=== PATIENT | male | born 1935 | race Caucasian/White ===

== ENCOUNTER 2017-04-03 11:21 | Inpatient (IN) | payer MEDICARE, BC ==
--- NOTE | ~2017-04-03 | DS ---
PATIENT:BI ALONSO :31 MEDICAL RECORD: [id number] DISCHARGE SUMMARY ADMISSION DATE: 04/03/17 DISCHARGE DATE: 04/12/17 This is a discharge dated 04/12/2017 from inpatient rehab. PRIMARY DIAGNOSIS: Decreased functional ability and ability to provide activities of daily living secondary to diffuse myopathy. SECONDARY DIAGNOSES: 1. Viral stomatitis. 2. Acute malnutrition. 3. Hypovolemia. 4. Uncontrolled atrial fibrillation. 5. Hypokalemia. 6. Hematuria. 7. Hypernatremia. 8. Acute kidney injury. 9. Ulcerative pharyngitis. 10. COPD. 11. Hypertension. 12. Benign prostatic hypertrophy. 13. Gastroesophageal reflux disease. 14. Anemia. 15. Depression. CONSULTS THIS HOSPITALIZATION: 1. GI with Dr. Pantoja. 2. Surgery with Dr. Cade. 3. Cardiology with Dr. Robin. HOSPITAL COURSE: Full H&P is located elsewhere on the chart on this 81-year-old male who was admitted to inpatient rehab for physical therapy and occupational therapy to improve gait, transfer skills, bed mobility, and activities of daily living to a modified independent level. He was evaluated by PT and OT and their plans of care were followed. He required senior care care for observation and assessment and medication administration. Electrolytes were managed by protocol. He was also seen by speech therapy. He was cooperative with therapies, progressing towards goals. Therapy was hampered by intermittent dizziness and hypotension. He developed some low-grade fevers. Urine was consistent with an infectious process. His oral intake continued to decline. Surgery was consulted for placement of a PEG tube. He developed uncontrolled atrial fibrillation and cardiology was consulted. Fluid bolus was given for hypovolemia. He was transferred to the acute setting for a higher level of care and for PEG tube placement. DISCHARGE MEDICATIONS: As per discharge medication reconciliation. DISCHARGE DISPOSITION: The patient is discharged to the acute care hospital. He will continue his current diet and level of activity. He will be seen by primary care and specialist in the acute setting. At least 30 minutes was spent in this discharge activity. TRANSINT:[id number] Voice Confirmation ID: [id number] DOCUMENT ID: [id number] DISCHARGE SUMMARY REPORT [id number] BI ALONSO Dictated By: SAUMYA CARVALHO I have interviewed/examined the above patient and agree with these documented findings. KAVIN LUCAS MD at 1344 at 1344 CC: [id number] DICTATION DATE: 05/17/17 180 PARISH VISITOR: 05/18/17 0136 DIS IN 04/12/17 [facility] [address] [place] [address]
--- NOTE | ~2017-04-03 | CN ---
PATIENT NAME:BI ALONSO MEDICAL RECORD: [id number] : 31 LOCATION:[id number] ADMIT DATE: 04/03/17 ACCOUNT: [id number] CONSULTING PHYSICIAN: ELISE WHITE MD REFERRING PHYSICIAN: KAVIN LUCAS MD DATE OF CONSULTATION: 04/11/2017 CHIEF COMPLAINT: Difficulty swallowing. HISTORY OF PRESENT ILLNESS: The patient has odynophagia. This is due to stomatitis. It is my understanding that the etiology of the stomatitis is not known. The patient may be developing an acute severe illness. He is now in atrial fibrillation with a rapid ventricular response. I have been asked to see him to place a feeding tube. It appears that GI was consulted as well. They have deferred placement of feeding tube to us. I have explained the risks, possible complications, and alternatives to the patient. This includes the risk of bleeding, requiring emergency reoperation, infection, intestinal injury as well as early dislodgement of the feeding tube. He is on Eliquis. We will need to hold the Eliquis prior to his procedure. The patient is currently nonverbal. Due to his nonverbal state, he is unable to provide me with any aggravating factors or alleviating factors. He is unable to provide me with a review of systems either. This is a consultation note addendum. For the typed portion of the consult note, please see the chart. This will include the past medical and surgical history, current medications, allergies, social history as well as family history. REVIEW OF SYSTEMS: Unobtainable from the patient as he is currently nonverbal. PHYSICAL EXAMINATION: GENERAL: He appears acutely ill. He does not appear chronically ill. VITAL SIGNS: Reviewed. I interviewed him in the presence of a nurse. EARS: External ears appear normal. EYES: Extraocular movements are intact. NECK: Trachea is midline. CHEST: No intercostal retractions. PULMONARY: Nonlabored, no stridor. ABDOMEN: Nontender. INTEGUMENT: Multiple seborrheic keratoses. PSYCHIATRIC: Flat affect. NEUROLOGIC: He is currently nonverbal. BACK: Mild thoracic kyphosis is noted. LYMPHATICS: No lymphangitic streaking of the exposed extremities. IMPRESSION: Acute malnutrition secondary to stomatitis. PLAN: Placement of a PEG tube in the GI lab on Thursday. I will hold his Eliquis until then. TRANSINT:[id number] Voice Confirmation ID: [id number] DOCUMENT ID: [id number] CONSULT REPORT [id number] BI ALONSO, ELISE DELGADILLO at 1019 CC: [id number] DICTATION DATE: 04/11/17 1553 COMPLETION MANAGER: 04/11/17 1611 DIS IN 04/12/17 [facility] [address] [place] [id number]
--- NOTE | ~2017-04-03 | RHP ---
PATIENT: BI ALONSO MEDICAL RECORD: [id number] ACCOUNT: [id number] LOCATION:[facility] : 31 ADMISSION DATE: 04/03/17 REHABILITATION HISTORY AND PHYSICAL EXAMINATION POST ADMISSION PHYSICIAN EXAMINATION POST-ADMISSION PHYSICAL EXAMINATION AND HISTORY AND PHYSICAL DATE OF ADMISSION: 04/03/2017 ADMITTING DIAGNOSIS: Disuse myopathy. HISTORY OF PRESENT ILLNESS: The patient is an 81-year-old gentleman, who is admitted to inpatient rehab unit with a diagnosis of disuse myopathy. The patient had a viral syndrome, viral stomatitis, inability to eat or drinking, and had a 20-pound weight loss. He was admitted to the acute hospital at [facility] on 03/25. He had a past medical history of COPD, hypertension, benign prostatic hypertrophy, and reflux disease. He was in his usual state of health 2 weeks prior to the admit when he started complaining of sore throat of moderate intensity, worsening over time. Started with a cough, sometimes productive. He went to his PCP, was tried with Bicillin injections the first visit or oral after the second. He has been unable to keep any of his medications down, had very little p.o. intake resulting in a 20-pound weight loss. He went back to his PCP, was sent to Dr. Worrell who suspected an acute viral pharyngitis due to soft palate ulcers, inability to swallow, significant weight loss. He therefore recommended admission. He was admitted with antivirals including acyclovir 500 mg IV every 12 hours. He was placed on clindamycin 300 mg IV every 6 hours, Procalamine 75 cc per hour, lipids at 250 cc every 24 hours, Magic mouthwash. He had sinus tachycardia at 126 and was placed on telemetry. He developed some hematuria. His DVT prophylaxis with subcutaneous heparin was held. Currently, he is able to drink water and take a soft diet, but p.o. intake is still not optimal. He remains very weak. He has a pain of 4/10, requiring morphine 2 mg IV every 2 hours p.r.n. pain. He has had prolonged immobility, progressive generalized weakness especially in the lower extremities affecting his tolerance for PT. He is very fatigued with limited flexion and extension of his lower extremities. He has had impaired proximal muscle strength. He is abosfwnz-yw-jcl assist for ADLs, vzfqjqqy-my-xgh assist for gpm-of-itxty and gbw-na-tstrp. He has ambulated 100 feet with PT, rolling walker, gait belt, and O2. Prior to admit, he was moderately independent with ADLs and mobility using a walker around his house. He is very motivated and has good family support to return home. Comorbidities in this patient include viral stomatitis, ulcerative pharyngitis, acute kidney injury, anemia, tachycardia, hypernatremia, hematuria, 20-pound weight loss, deconditioning, weakness, sore throat, and depression. PAST MEDICAL HISTORY: Significant for BPH, gastroesophageal reflux disease, COPD, and hypertension. PAST SURGICAL HISTORY: Includes transurethral resection of the prostate. ALLERGIES: No known drug allergies. CURRENT MEDICATIONS: Include Protonix 40 mg daily, aspirin chewable 81 mg daily, Norvasc 5 mg daily, acyclovir 400 mg 5 times daily. He is on citalopram HISTORY AND PHYSICAL [id number] BI ALONSO 20 mg at bedtime, hydrocodone 5/325 as needed for pain, Cozaar 25 mg b.i.d. He is on Magic mouthwash as needed. He is on albuterol updrafts 2 puffs every 4 hours p.r.n., polyethylene glycol 17 grams in 8 ounces of water daily. HABITS: No current alcohol or tobacco use. FAMILY HISTORY: Noncontributory. SOCIAL HISTORY: The patient hopes to return back home. He does have good family support. REVIEW OF SYSTEMS: GENERAL: Does complain of weakness and fatigue. HEENT: Denies cold, cough, or congestion. CARDIOVASCULAR: Denies chest pain. PHYSICAL EXAMINATION: VITAL SIGNS: Stable, afebrile. GENERAL: A thin gentleman, in no acute distress upon exam. HEENT: Normocephalic, atraumatic. Mucosa moist. TMs are shiny and mobile. NECK: Supple. He does have redness to his posterior oropharynx. LUNGS: Clear at this time. HEART: Regular rate and rhythm. ABDOMEN: Benign. EXTREMITIES: No clubbing, cyanosis or edema. NEUROLOGIC: He does have profound weakness. LABORATORY DATA: White count is 3.7, H&H of 9.6 and 28.6, and platelet count was noted to be 220. His MCV is 107.5. Sodium 140, potassium 3.8, BUN and creatinine of 19 and 1.1, and blood sugar was noted to be 105. ASSESSMENT: This is an 81-year-old gentleman admitted to the rehab with a working diagnosis of disuse myopathy secondary to a prolonged illness with a viral stomatitis and weight loss. The patient has potential to make improvement. We will institute the following multidisciplinary therapies including, but not limited to physical, occupational, respiratory, speech, nutritional services, prosthetics and orthotics. Given his complex condition and risk for more complications, rehabilitation services cannot be provided at a low level of care such as a custodial facility. PLAN: 1. Admit to [facility] rehab for intensive inpatient therapy to include the following disciplines: A. Physical therapy to improve gait, all transfer skills and bed mobility to a modified independent level. B. Occupational therapy to improve activities of daily living to a modified independent level. C. Case management to assist with discharge planning and placement options. D. Nutrition to assist with nutritional needs. E. Rehabilitation nursing to assist in monitoring the patient's underlying medical conditions and to assist with any type of bowel or bladder management. 2. The patient's current medications will be continued. 3. The patient will be placed on standard fall precautions. 4. The patient's estimated length of stay is approximately 7 to 10 days. 5. We will discuss this patient during care team staff meeting this week. HISTORY AND PHYSICAL [id number] BI ALONSO TRANSINT:[id number] Voice Confirmation ID: [id number] DOCUMENT ID: [id number] ASHTYN notes whether there has been none or any medical/functional change since admission: - No change since prescreen. ASHTYN attests patient continues to be appropriate for IRF: - Continues to be appropriate. KAVIN LUCAS MD at 1739 CC: [id number] DICTATION DATE: 04/04/17 1024 TRAY CASTING MACHINE OPERATOR: 04/04/17 1128 ADM IN [place] [id number] [place] [address]
[2017-04-03 13:55] VITALS: BP 125/62; BMI 21.1
[2017-04-03] MEDS ORDERED: ZOVIRAX 20200 MG/5 M PO (14:27)
[2017-04-03] MEDS ORDERED: PROAIR HFA8.5 GM INH (14:31)
[2017-04-03] MEDS ORDERED: ASPIRIN EC81 M1 PO (14:32)
[2017-04-03] MEDS ORDERED: DEXILANT60 MG PO (14:33)
[2017-04-03] MEDS ORDERED: CELEXA20 MG PO (14:33)
[2017-04-03] MEDS ORDERED: COZAAR25 MG PO (14:36)
[2017-04-03] MEDS ORDERED: HYDROCODON-ACE1 EAC7 PO (14:36)
[2017-04-03] MEDS ORDERED: ONCOLOGY MOUTHWA5 ML PO (14:37)
[2017-04-03] MEDS ORDERED: ACETAMINOPHEN325 MG PO (14:38)
[2017-04-03] MEDS ORDERED: TYLENOL PM1 TAB PO (14:39)
[2017-04-03 20:00] VITALS: BP 135/81
[2017-04-04 08:15] LABS: BASOPHILS 0.3 % (0-2); EOSINOPHILS 0.3 % (0-7); HEMATOCRIT 28.6 % (42.0-54.0); HEMOGLOBIN 9.6 g/dL (13.5-17.5); IMMATURE GRANULOCYTES 1.6 % (0-5); LYMPHOCYTES 14.4 % (15-50); MCH 36.1 pg (26.0-34.0); MCHC 33.6 g/dL (31.0-37.0); MCV 107.5 fL (80.0-100.0); MEAN PLATELET VOLUME 11.3 fL (7.4-10.4); MONOCYTES 54.3 % (2-11); NEUTROPHILS 29.1 % (40-80); PLATELET COUNT 220 10x3/uL (130-400); RBC 2.66 10x6/uL (4.20-6.10); RDW 13.1 % (11.5-14.5); WBC 3.7 10x3/uL (4.8-10.8)
[2017-04-04 08:33] LABS: CALCIUM 8.4 mg/dL (8.5-10.1); CARBON DIOXIDE 27.8 mmol/L (21.0-32.0); CREATININE - SERUM 1.1 mg/dL (0.6-1.3); POTASSIUM - SERUM 3.8 mmol/L (3.5-5.1)
[2017-04-04 11:18] VITALS: BMI 21.1
[2017-04-04 14:27] VITALS: BP 130/69
[2017-04-04 23:16] VITALS: BP 106/63
[2017-04-05 08:36] VITALS: BP 106/57
[2017-04-05 19:34] VITALS: BP 109/52
[2017-04-06 05:43] LABS: BASOPHILS 0.2 % (0-2); EOSINOPHILS 0.2 % (0-7); HEMATOCRIT 27.2 % (42.0-54.0); LYMPHOCYTES 26.9 % (15-50); MCH 35.4 pg (26.0-34.0); MCHC 33.1 g/dL (31.0-37.0); MCV 107.1 fL (80.0-100.0); MEAN PLATELET VOLUME 10.8 fL (7.4-10.4); MONOCYTES 35.1 % (2-11); NEUTROPHILS 36.6 % (40-80); PLATELET COUNT 230 10x3/uL (130-400); RBC 2.54 10x6/uL (4.20-6.10); RDW 13.3 % (11.5-14.5)
[2017-04-06 05:57] LABS: ANION GAP 12.8 mmol/L (8-16); CALCIUM 8.4 mg/dL (8.5-10.1); CARBON DIOXIDE 26.5 mmol/L (21.0-32.0); POTASSIUM - SERUM 3.3 mmol/L (3.5-5.1)
[2017-04-06 06:00] LABS: CREATININE - SERUM 1.4 mg/dL (0.6-1.3)
[2017-04-06 08:00] VITALS: BP 144/71
[2017-04-06 15:24] VITALS: BP 103/53
[2017-04-06 19:10] VITALS: BP 96/51
[2017-04-07 08:16] VITALS: BP 109/56
[2017-04-07 13:30] VITALS: BP 96/63
[2017-04-07 19:15] VITALS: BP 100/53
[2017-04-08] VITALS (9 sets, daily range): BP systolic 114–127; BP diastolic 61–73
[2017-04-08 07:00] LABS: BASOPHILS 0.1 % (0-2); EOSINOPHILS 0.2 % (0-7); HEMATOCRIT 25.8 % (42.0-54.0); HEMOGLOBIN 8.4 g/dL (13.5-17.5); IMMATURE GRANULOCYTES 1.5 % (0-5); LYMPHOCYTES 19.3 % (15-50); MCH 35.7 pg (26.0-34.0); MCHC 32.6 g/dL (31.0-37.0); MCV 109.8 fL (80.0-100.0); MONOCYTES 34.3 % (2-11); NEUTROPHILS 44.6 % (40-80); PLATELET COUNT 218 10x3/uL (130-400); RBC 2.35 10x6/uL (4.20-6.10); RDW 13.8 % (11.5-14.5); WBC 8.1 10x3/uL (4.8-10.8)
[2017-04-08 07:17] LABS: ANION GAP 12.8 mmol/L (8-16); CALCIUM 7.8 mg/dL (8.5-10.1); CARBON DIOXIDE 29.9 mmol/L (21.0-32.0); CREATININE - SERUM 1.3 mg/dL (0.6-1.3); POTASSIUM - SERUM 3.7 mmol/L (3.5-5.1)
[2017-04-09 08:00] VITALS: BP 113/57
[2017-04-09 22:09] VITALS: BP 108/56
[2017-04-10 06:26] LABS: BASOPHILS 0.1 % (0-2); EOSINOPHILS 0 % (0-7); HEMATOCRIT 28.1 % (42.0-54.0); HEMOGLOBIN 9.3 g/dL (13.5-17.5); IMMATURE GRANULOCYTES 1.8 % (0-5); LYMPHOCYTES 16.5 % (15-50); MCH 35.2 pg (26.0-34.0); MCHC 33.1 g/dL (31.0-37.0); MEAN PLATELET VOLUME 11.2 fL (7.4-10.4); NEUTROPHILS 51.6 % (40-80); PLATELET COUNT 197 10x3/uL (130-400); RBC 2.64 10x6/uL (4.20-6.10); RDW 16.3 % (11.5-14.5)
[2017-04-10 06:29] LABS: MCV 106.4 fL (80.0-100.0)
[2017-04-10 06:37] LABS: ANION GAP 12.9 mmol/L (8-16); CARBON DIOXIDE 27.5 mmol/L (21.0-32.0); CREATININE - SERUM 1.4 mg/dL (0.6-1.3); POTASSIUM - SERUM 3.4 mmol/L (3.5-5.1)
[2017-04-10 07:00] LABS: CALCIUM 7.8 mg/dL (8.5-10.1)
[2017-04-10 08:29] VITALS: BP 113/61
[2017-04-10 20:35] VITALS: BP 92/42
[2017-04-11 07:55] VITALS: BP 82/60
[2017-04-11 11:38] LABS: BASOPHILS 0.1 % (0-2); EOSINOPHILS 0.1 % (0-7); HEMATOCRIT 27.7 % (42.0-54.0); HEMOGLOBIN 9.2 g/dL (13.5-17.5); IMMATURE GRANULOCYTES 2.7 % (0-5); LYMPHOCYTES 16.9 % (15-50); MCH 35.1 pg (26.0-34.0); MCHC 33.2 g/dL (31.0-37.0); MCV 105.7 fL (80.0-100.0); MEAN PLATELET VOLUME 11.1 fL (7.4-10.4); MONOCYTES 25.3 % (2-11); NEUTROPHILS 54.9 % (40-80); PLATELET COUNT 181 10x3/uL (130-400); RBC 2.62 10x6/uL (4.20-6.10); RDW 15.9 % (11.5-14.5); WBC 13.8 10x3/uL (4.8-10.8)
[2017-04-11 11:44] LABS: ANION GAP 8.2 mmol/L (8-16); CALCIUM 8.4 mg/dL (8.5-10.1); CREATININE - SERUM 1.5 mg/dL (0.6-1.3); POTASSIUM - SERUM 3.2 mmol/L (3.5-5.1)
[2017-04-11 13:45] LABS: APPEARANCE CLOUDY (CLEAR); BILIRUBIN NEGATIVE (NEGATIVE); COLOR YELLOW (YELLOW); GLUCOSE NEGATIVE (NEGATIVE); KETONE NEGATIVE (NEGATIVE); NITRITE NEGATIVE (NEGATIVE); PROTEIN 2+ mg/dL (NEGATIVE); SPECIFIC GRAVITY 1.015 (1.005-1.020); UROBILINOGEN NORMAL (NORMAL)
[2017-04-11 13:46] LABS: BACTERIA MANY /hpf (NONE SEEN); EPITHELIAL CELLS 0-5 /hpf (0-5); WHITE CELLS - URINE >50 /hpf (0-5)
[2017-04-11 14:59] VITALS: BMI 21.1
[2017-04-11 15:38] LABS: CKMB 0.4 U/L (0.0-3.6); CREATINE KINASE 12 UL (21-232)
[2017-04-11 15:41] LABS: TROPONIN-I < 0.017 ng/mL (0.000-0.060)
[2017-04-11 16:04] LABS: ALBUMIN 2.1 g/dL (3.4-5.0); ANION GAP 11.4 mmol/L (8-16); CALCIUM 8.1 mg/dL (8.5-10.1); CARBON DIOXIDE 26.8 mmol/L (21.0-32.0); CREATININE - SERUM 1.5 mg/dL (0.6-1.3); MAGNESIUM - SERUM 1.7 mg/dL (1.8-2.4); PHOSPHOROUS 2.4 mg/dL (2.5-4.9); POTASSIUM - SERUM 3.2 mmol/L (3.5-5.1); PRE-ALBUMIN 7.1 mg/dL (18.0-35.7)
[2017-04-11 23:12] LABS: CKMB 0.5 U/L (0.0-3.6); CREATINE KINASE 14 UL (21-232)
[2017-04-11 23:13] LABS: TROPONIN-I < 0.017 ng/mL (0.000-0.060)
[2017-04-12 00:57] VITALS: BP 103/57
[2017-04-12 06:02] LABS: CKMB 0.5 U/L (0.0-3.6); CREATINE KINASE 12 UL (21-232)
[2017-04-12 06:05] LABS: TROPONIN-I < 0.017 ng/mL (0.000-0.060)
[2017-04-12 08:00] VITALS: BP 104/53
[2017-04-12] MEDS ORDERED: LANOXIN250 MCG PO (12:46)
[2017-04-12] MEDS ORDERED: K-TAB10 MEQ PO (12:46)
[2017-04-12] MEDS ORDERED: NORVASC5 MG PO (12:49)
[2017-04-12] MEDS ORDERED: AMPICILLIN1.5 G/VIA2 IV (12:51)
[2017-04-12] MEDS ORDERED: LOPRESSOR25 MG PO (13:30)
== END 2017-04-12 14:45 | disposition short-term general hospital (02) | DRG 92 ==
LOC: D.REHAB 11:21
PROVIDERS: Emergency Medicine; Internal Medicine Cardiovascular Disease; Surgery
DX: G72.89 Other specified myopathies (principal); N17.9 Acute kidney failure, unspecified; E87.0 Hyperosmolality and hypernatremia; K12.1 Other forms of stomatitis; J02.9 Acute pharyngitis, unspecified; D64.9 Anemia, unspecified; R00.0 Tachycardia, unspecified; R31.9 Hematuria, unspecified; R63.4 Abnormal weight loss; R53.1 Weakness; F32.9 Major depressive disorder, single episode, unspecified; K21.9 Gastro-esophageal reflux disease without esophagitis; J44.9 Chronic obstructive pulmonary disease, unspecified; I10 Essential (primary) hypertension; I48.91 Unspecified atrial fibrillation

== ENCOUNTER 2017-04-12 14:21 | Inpatient (IN) | payer MEDICARE, BC ==
[~2017-04-12] VITALS: Ht 185.4 cm; Wt 73.0 kg
--- NOTE | ~2017-04-12 | EC ---
PATIENT:BI ALONSO DATE OF SERVICE: 04/12/17 SEX: M MEDICAL RECORD: [id number] DATE OF : 31 LOCATION:[facility] AGE OF PATIENT: 81 ADMISSION DATE: 04/13/17 REFERRING PHYSICIAN: INTERPRETING PHYSICIAN: TAIWO CERVANTES MD ECHOCARDIOGRAM REPORT ECHO CHARGES CLINICAL DIAGNOSIS: ECHOCARDIOGRAPHIC MEASUREMENTS (adult normal given) AC root (d.<3.7cm) cm LV Septum d (<1.2 cm> cm Valve Excursion cm LV Septum (systole) cm Left Atria (s.<4.0cm> cm LVPW d(<1.2cm) cm RV (d.<2.3cm) cm LVPW (sytole) cm LV diastole(<5.6CM) cm MV E-F(>70mm/sec) cm LV systole cm LVOT Diameter cm MV exc.(>10mm) cm Est.ejection fraction (50-75%) % Pericardial Effusion DOPPLER: LVIT cm/sec A cm/sec E cm/sec LA cm/sec RVSP mmHg LVOT cm/sec AOP1/2T m/s Asc. Ao cm/sec RVOT cm/sec RA cm/sec PA cm/sec AV Gradient Peak mmHg AV Mean mmHg AV Area cm MV Gradient Peak mmHg MV Mean mmHg MV Area cm COMMENTS: Cashier Greeter: Loom Setter Fourdrinier: ARLYN DATE OF SERVICE: 04/12/2017 PROCEDURE: Transthoracic echocardiogram. RHYTHM: The patient is in a controlled atrial fibrillation with the rapid rate. FINDINGS: 1. Left ventricle: There is inferior apical hypokinesis. There is hyperdynamic septal and posterior wall. The endocardium is not well visualized. The overall ejection fraction is 45%. ECHOCARDIOGRAM REPORT [id number] BI ALONSO 2. The left atrium is not well visualized, but appears to be normal size. 3. The mitral valve has mitral annular calcification with trace mitral regurgitation. 4. The aortic valve is normal function with trace aortic insufficiency. 5. The tricuspid valve has trace to mild tricuspid regurgitation with an RVSP of 40-45 mmHg. 6. The pericardium is normal. 7. The pulmonic valve is normal. 8. The right atrium has mild right atrial enlargement. 9. The right ventricle is normal size, normal function. CONCLUSIONS: The patient has what appears to be mildly reduced function, which may be a component of his rapid AFib with certain views hinting towards normal function, but overall there is no gross valvular abnormalities. The size of the heart overall is in the normal range. TRANSINT:[id number] Voice Confirmation ID: [id number] DOCUMENT ID: [id number] 04/15/2017 Edited to correct date of service, dmm. TAIWO CERVANTES MD at 0807 CC: [id number] DICTATION DATE: 04/13/17 0727 MEDICAL BILLING MANAGER: 04/13/17 0948 DIS IN 04/15/17 [facility] [address] [place] [address]
--- NOTE | ~2017-04-12 | HP ---
PATIENT: BI ALONSO MEDICAL RECORD: [id number] ACCOUNT: [id number] LOCATION:[facility] : 31 ADMISSION DATE: 04/13/17 HISTORY AND PHYSICAL EXAMINATION CHIEF COMPLAINT: Stomatitis. HISTORY OF PRESENT ILLNESS: The patient has odynophagia as well as dysphagia due to stomatitis. He is acutely malnourished. I discussed the risks, possible complications, alternatives to PEG placement with the patient and with his . They elected to proceed. This is a history and physical addendum. For the typed portion of the history and physical, please see the chart. This would include the past medical and surgical history, current medications, allergies, social history as well as family history. REVIEW OF SYSTEMS: Currently no nausea, no vomiting. Positive now for pain. Positive for dysphagia, positive for odynophagia. PHYSICAL EXAMINATION: GENERAL: The patient does appear acutely ill. Also appears chronically ill. VITAL SIGNS: Reviewed. EARS: External ears appear normal. EYES: Extraocular movements are intact. NECK: Trachea is midline. CHEST: Intercostal retractions are present. ABDOMEN: Nontender. INTEGUMENT: Multiple seborrheic keratoses. IMPRESSION: 1. Acute malnutrition in a patient with stomatitis. 2. Odynophagia and dysphagia. PLAN: EGD with PEG placement. TRANSINT:[id number] Voice Confirmation ID: [id number] DOCUMENT ID: [id number] ELISE WHITE MD at 1019 CC: [id number] DICTATION DATE: 04/13/17929 ACCOUNT EXECUTIVE: 04/13/17 0946 ADM IN [place] [id number] [place] [id number]
--- NOTE | ~2017-04-12 | OP ---
PATIENT NAME: BI ALONSO MEDICAL RECORD: [id number] :31 LOCATION:[facility] ADMISSION DATE:04/13/17 SURGEON: CHOCO WHITE MD DATE OF OPERATION: 04/13/2017 PREOPERATIVE DIAGNOSES: 1. Odynophagia. 2. Dysphagia. 3. Stomatitis. 4. Acute malnutrition. POSTOPERATIVE DIAGNOSES: 1. Odynophagia. 2. Dysphagia. 3. Stomatitis. 4. Acute malnutrition. 5. 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 6. Bile reflux gastritis. PROCEDURES: 1. Esophagogastroduodenoscopy with antral biopsies. 2. Percutaneous endoscopic gastrostomy tube placement, 20 [place]. SURGEON: Choco White MD. DISC PAD KNOCKOUT WORKER: None. BLOOD LOSS: Minimal. ANESTHESIA: Local with IV sedation. COMPLICATIONS: None. The risks, possible complications and alternatives to the procedure were discussed with the patient and his . They elected to proceed. OPERATIVE COURSE: The patient was conveyed to the GI lab electively on 04/13/2017. IV sedation was induced by the anesthesia staff. A bite block was inserted. A gastroscope was inserted into the mouth. It was advanced easily into the hypopharynx. The esophagus was easily intubated as were the stomach and duodenum. Upon withdrawal, retroflexed and angulus views were obtained. Antral biopsies were obtained. I then cleansed the anterior abdominal wall skin. I indented the anterior abdominal wall and was able to visualize this endoscopically. I chose an area in the left upper quadrant for placement of the gastrostomy tube. A local anesthetic was used to infiltrate the skin and subcutaneous tissues at this site. A transverse skin incision was accomplished. Through the skin incision, I accessed the stomach. A guidewire was advanced. This was grasped with an endoscopic snare. The snare and guidewire were then withdrawn out through the mouth. The wire was attached to a pull type gastrostomy tube, which was then pulled into place. I then re-endoscoped the patient's esophagus and stomach. There had been no evidence of a false passage or perforation. The endoscope was then withdrawn under direct vision. Hub and flange devices were attached. The patient was then conveyed back to his room. OPERATIVE REPORT [id number] BI ALONSO TRANSINT:[id number] Voice Confirmation ID: [id number] DOCUMENT ID: [id number] CHOCO WHITE MD at 1019 CC: KAVIN LUCAS [id number] DICTATION DATE: 04/13/17 0938 COMBINED RAIL OPERATOR: 04/13/17 1001 ADM IN [place] [id number] [place] [id number]
[~2017-04-12 14:21] MED LIST: ACETAMINOPHEN325 MG PO; AMPICILLIN1.5 G/VIA2 IV; ASPIRIN EC81 M1 PO; CELEXA20 MG PO; COZAAR25 MG PO; DEXILANT60 MG PO; HYDROCODON-ACE1 EAC7 PO; K-TAB10 MEQ PO; LANOXIN250 MCG PO; LOPRESSOR25 MG PO; NORVASC5 MG PO; ONCOLOGY MOUTHWA5 ML PO; PROAIR HFA8.5 GM INH; TYLENOL PM1 TAB PO; ZOVIRAX 20200 MG/5 M PO
[2017-04-12 21:55] VITALS: BP 115/71
[2017-04-13 00:40] VITALS: BP 125/76
[2017-04-13 04:50] VITALS: BP 127/67
[2017-04-13 05:27] VITALS: BP 115/71; BMI 21.2
[2017-04-13 08:14] VITALS: BP 123/76
[2017-04-13 20:00] VITALS: BP 152/73
[2017-04-14 04:00] VITALS: BP 131/80
[2017-04-14 05:47] LABS: CALC OSMOLALITY 295 mosm/kg (275-300); CALCIUM 7.4 mg/dL (8.5-10.1); CARBON DIOXIDE 23.3 mmol/L (21.0-32.0); CHLORIDE - SERUM 109 mmol/L (98-107); GLUCOSE 95 mg/dL (74-106); MAGNESIUM - SERUM 2.1 mg/dL (1.8-2.4); PHOSPHOROUS 3.5 mg/dL (2.5-4.9); POTASSIUM - SERUM 3.4 mmol/L (3.5-5.1); SODIUM 146 mmol/L (136-145); UREA NITROGEN 26 mg/dL (7-18); eGFR NON AFRICAN AMERICAN 76 mL/min (90-120)
[2017-04-14 08:02] VITALS: BMI 21.2
[2017-04-14 08:15] VITALS: BP 134/86
[2017-04-14 11:59] VITALS: BP 124/77
[2017-04-14 15:48] VITALS: BP 122/79
[2017-04-14 20:00] VITALS: BP 123/71
[2017-04-15 04:00] VITALS: BP 114/63
[2017-04-15 04:50] LABS: CALC OSMOLALITY 285 mosm/kg (275-300); CALCIUM 7.7 mg/dL (8.5-10.1); CARBON DIOXIDE 27.4 mmol/L (21.0-32.0); CHLORIDE - SERUM 105 mmol/L (98-107); GLUCOSE 127 mg/dL (74-106); POTASSIUM - SERUM 3.1 mmol/L (3.5-5.1); SODIUM 141 mmol/L (136-145); UREA NITROGEN 22 mg/dL (7-18); eGFR NON AFRICAN AMERICAN 76 mL/min (90-120)
[2017-04-15 04:54] LABS: PHOSPHOROUS 2.1 mg/dL (2.5-4.9)
[2017-04-15 08:02] VITALS: BP 126/78
[2017-04-15 12:50] VITALS: BP 133/70
[2017-04-16 10:54] VITALS: Ht 185.4 cm; Wt 73.0 kg
== END 2017-04-15 15:37 | DRG 158 ==
LOC: OBSVTIME → D.MS 14:21 → UNDOADMOB 14:21 → OBSVTIME 14:33 → D.MS 04-13 12:41
PROVIDERS: Surgery
PROC: 0DH64UZ Insertion of Feeding Device into Stomach, Percutaneous Endoscopic Approach (ICD-10-PCS; 2017-04-13)
PROC: 0DB78ZX Excision of Stomach, Pylorus, Via Natural or Artificial Opening Endoscopic, Diagnostic (ICD-10-PCS; principal; 2017-04-13 08:00)
DX: K12.1 Other forms of stomatitis (principal); E46 Unspecified protein-calorie malnutrition; I85.00 Esophageal varices without bleeding; R13.10 Dysphagia, unspecified; K29.70 Gastritis, unspecified, without bleeding

== ENCOUNTER 2017-04-15 14:56 | Inpatient (IN) | payer MEDICARE, BC ==
[~2017-04-15] VITALS: Ht 185.4 cm; Wt 65.8 kg
--- NOTE | ~2017-04-15 | RHP ---
PATIENT: BI ALONSO MEDICAL RECORD: [id number] ACCOUNT: [id number] LOCATION:[facility]1114 : 31 ADMISSION DATE: 04/15/17 REHABILITATION HISTORY AND PHYSICAL EXAMINATION POST ADMISSION PHYSICIAN EXAMINATION POST-ADMISSION PHYSICAL EXAMINATION AND HISTORY AND PHYSICAL DATE OF ADMISSION: 04/15/2017 ADMITTING DIAGNOSIS: Critical illness myopathy. HISTORY OF PRESENT ILLNESS: The patient is an 81-year-old gentleman admitted to the inpatient rehab with critical illness myopathy. The patient originally had a viral syndrome, viral stomatitis, and inability to eat. He had a 20-pound weight loss within a 2-week period. He was admitted to the [facility] hospital on 03/25. Prior to this, he was in his usual state of health when he started complaining of sore throat, moderate in intensity, worsening over time. He had a cough that was somewhat productive. Went to his PCP. He was tried on Bicillin injections the first visit and oral medications after the second. He became unable to keep any of his medications down, had very little p.o. intake after admit and treatment with antivirals and acyclovir 500 mg IV every 12 hours, clindamycin 300 mg IV every 6 hours, procalamine at 75 cc an hour, lipids at 250 over 24, and Magic mouthwash. He was weak and deconditioned, so he was admitted to the acute rehab at [place] on 04/03 for intensive therapy. After 9 days on rehab, he continued to have painful swallowing and decreased oral intake. He became dehydrated and acutely malnourished, went into atrial fib with rapid ventricular response. His heart rate was 170. He was lethargic. His blood pressure was 80/42. He was transferred back to the [facility] hospital with cardiology consult and surgical consult for PEG placement. He was started on digoxin 0.25 mg daily and he is currently in a sinus rhythm. On 04/13, he went to the OR for PEG placement. He was started on tube feeds with Jevity 1.2 at 20 mL per hour to increase to 10 cc every 8 hours to a goal of 70 cc an hour. He is tolerating tube feeds without nausea or emesis. He continues to have a puree diet as tolerated. He has had prolonged immobility, progressive generalized weakness especially in his lower extremities affecting his tolerance for physical therapy. He is very fatigued. He has limited flexion and extension of his lower extremities. He has had impaired proximal muscle weakness. He is [id number]-[id number] assist for ADLs, [id number]-[id number] assist for bbf-jg-xhlwr and ecj-np-ffgxz. He has ambulated 10 feet with PT, rolling walker, gait belt, and O2. Prior to admit, he was moderately independent with ADLs and mobility around his house. He is very motivated and has good family support and wants to be able to return home. Comorbidities in this patient include hypertension, AFib, COPD, dysphagia, malnutrition, hypokalemia, hypotension, UTI, lethargy, leucocytosis, acute viral stomatitis, acute ulcerative pharyngitis, acute kidney injury, anemia, tachycardia, hypernatremia, hematuria, deconditioning, and depression. PAST MEDICAL HISTORY: Significant for BPH, gastroesophageal reflux disease, COPD, and hypertension. PAST SURGICAL HISTORY: Includes a transurethral resection of the prostate. ALLERGIES: No known drug allergies. HISTORY AND PHYSICAL [id number] BI ALONSO CURRENT MEDICATIONS: Include potassium 10 mEq daily, digoxin 0.25 mg daily, Protonix 40 mg daily, citalopram 20 mg daily, aspirin chewable 81 mg daily, amlodipine 5 mg daily. He is on Unasyn 1.5 grams every 12 hours. He is on Lopressor 12.5 mg b.i.d., Cozaar 25 mg b.i.d., Magic mouthwash as needed. He is on [place] 5/325 as needed for pain. Ventolin updrafts as needed. He is on Tylenol PM as needed for insomnia. HABITS: No alcohol or tobacco use. FAMILY HISTORY: Noncontributory. SOCIAL HISTORY: The patient hopes to return back home and get back to his prior level of functioning. REVIEW OF SYSTEMS: GENERAL: He does complain of weakness and fatigue. HEENT: Denies cold, cough, or congestion. CARDIOVASCULAR: Denies chest pain. PHYSICAL EXAMINATION: VITAL SIGNS: Stable, afebrile. GENERAL: A thin gentleman, in no acute distress upon exam. HEENT: He does have some healing areas of viral-type stomatitis. LUNGS: Clear at this time. HEART: Regular rate and rhythm. ABDOMEN: Benign. PEG appears normal. EXTREMITIES: No clubbing, cyanosis, or edema. NEUROLOGIC: The patient seems to be mostly intact. 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 The patient has potential to make improvement. We will institute the following multidisciplinary therapies including, but not limited to physical, occupational, respiratory, speech, nutritional services, prosthetics and orthotics. Given his complex condition and risk for more complications, rehabilitation services cannot be provided at a low level of care such as a custodial facility. PLAN: 1. Admit to [facility] for intensive inpatient therapy to include the following disciplines: A. Physical therapy to improve gait, all transfer skills and bed mobility to a modified independent level. B. Occupational therapy to improve activities of daily living to a modified independent level. C. Case management to assist with discharge planning and placement options. D. Nutrition to assist with nutritional needs. E. Rehabilitation nursing to assist in monitoring the patient's underlying medical conditions and to assist with any type of bowel or bladder management. 2. The patient's current medications will be continued. 3. The patient will be placed on standard fall precautions. 4. The patient's estimated length of stay is approximately 7-10 days. 5. I am going to go ahead and check blood work on in the morning. We will update FIM scores as available and treat appropriately. HISTORY AND PHYSICAL [id number] BI ALONSO TRANSINT:[id number] Voice Confirmation ID: [id number] DOCUMENT ID: [id number] ASHTYN notes whether there has been none or any medical/functional change since admission: - No change since the PAS ASHTYN attests patient continues to be appropriate for IRF: - Continues to be appropriate for the IRF KAVIN LUCAS MD at 0857 CC: [id number] DICTATION DATE: 04/16/17 0835 STOCK SUPERVISOR: 04/16/17 1017 ADM IN [facility] [address] [place] [address]
--- NOTE | ~2017-04-15 | DS ---
PATIENT:BI ALONSO :31 MEDICAL RECORD: [id number] DISCHARGE SUMMARY ADMISSION DATE: 04/15/17 DISCHARGE DATE: 05/01/17 This is a discharge dated 05/01/2017 from inpatient rehabilitation. PRIMARY DIAGNOSIS: Decreased functional ability and ability to provide activities of daily living secondary to critical illness myopathy. SECONDARY DIAGNOSES: 1. Acute viral stomatitis. 2. Acute ulcerative pharyngitis. 3. Protein-calorie malnutrition. 4. Dysphagia. 5. Hypernatremia. 6. Acute kidney injury. 7. Anemia. 8. Atrial fibrillation. 9. Hypertension. 10. Chronic obstructive pulmonary disease. 11. Hypokalemia. 12. Gastroesophageal reflux disease. 13. Benign prostatic hypertrophy. 14. Hypotension. 15. Coccyx and buttock wounds. 16. Urinary tract infection. HOSPITAL COURSE: Full H&P is located elsewhere on the chart on this 81-year-old male who was admitted to inpatient rehab for physical therapy and occupational therapy to improve gait, transfer skills, bed mobility, and activities of daily living to a modified independent level. He was evaluated by PT and OT and their plans of care were followed. He was also followed by speech therapy for management of dysphagia. He remained on inhaled medications for respiratory support. He was initially on ampicillin for antibiotic coverage. Electrolytes were managed by protocol. He remained on appropriate home medications. He did have a PEG tube with supplemental feedings with Jevity. He had oncology mouthwash for comfort. He had daily wound care for buttock and coccyx wounds. He developed a UTI and was started on Macrobid for management. He was cooperative with therapies, progressing towards goals, but still with significant weakness. He was evaluated for admission to [facility]. Case management was involved for discharge planning. He was considered stable for discharge on 05/01/2017. DISCHARGE MEDICATIONS: As per discharge medication reconciliation. DISCHARGE DISPOSITION: The patient is discharged to [facility]. He will continue PT and OT. He will follow up with primary care at the rehab facility and will follow up with his PCP, Dr. Sarthak Gasca upon discharge from that facility. He will follow up with specialist as directed. At least 30 minutes was spent in this discharge activity. TRANSINT:[id number] Voice Confirmation ID: [id number] DOCUMENT ID: [id number] DISCHARGE SUMMARY REPORT [id number] BI ALONSO Dictated By: SAUMYA CARVALHO I have interviewed/examined the above patient and agree with these documented findings. KAVIN LUCAS MD at 1157 at 0940 CC: [id number] DICTATION DATE: 06/20/17 1214 CORONER/MEDICAL EXAMINER: 06/21/17 0940 DIS IN 05/01/17 [id number] [place] [address]
[2017-04-15 18:09] VITALS: BP 121/71; BMI 19.1
[2017-04-15 19:49] VITALS: BP 133/70
[2017-04-16 07:42] VITALS: BP 127/67
[2017-04-16 10:54] VITALS: Ht 185.4 cm; Wt 65.8 kg
[2017-04-16 19:00] VITALS: BP 113/62
[2017-04-17 07:04] LABS: HEMOGLOBIN 9.4 g/dL (13.5-17.5); MCH 34.7 pg (26.0-34.0); MCHC 32.4 g/dL (31.0-37.0); MEAN PLATELET VOLUME 11.4 fL (7.4-10.4); PLATELET COUNT 158 10x3/uL (130-400); RBC 2.71 10x6/uL (4.20-6.10)
[2017-04-17 07:06] LABS: CALC OSMOLALITY 286 mosm/kg (275-300); CALCIUM 7.3 mg/dL (8.5-10.1); CARBON DIOXIDE 28.1 mmol/L (21.0-32.0); CHLORIDE - SERUM 105 mmol/L (98-107); GLUCOSE 141 mg/dL (74-106); POTASSIUM - SERUM 3.3 mmol/L (3.5-5.1); SODIUM 141 mmol/L (136-145); UREA NITROGEN 25 mg/dL (7-18); eGFR NON AFRICAN AMERICAN 76 mL/min (90-120)
[2017-04-17 07:48] LABS: ANISOCYTOSIS OCC; HYPOCHROMASIA OCC; LYMPHOCYTES 16 % (15-50); MONOCYTES 23 % (2-11); NEUTROPHILS 48 % (40-80); PLATELET ESTIMATE NORMAL
[2017-04-17 09:11] VITALS: BP 122/58
[2017-04-18 00:23] VITALS: BP 112/62
[2017-04-18 08:33] VITALS: BP 126/55
[2017-04-18 20:51] VITALS: BP 104/53
[2017-04-19 07:57] VITALS: BP 117/63
[2017-04-19 22:33] VITALS: BP 124/57
[2017-04-20 06:31] LABS: BASOPHILS 0.2 % (0-2); EOSINOPHILS 0.1 % (0-7); HEMATOCRIT 28.8 % (42.0-54.0); HEMOGLOBIN 9.3 g/dL (13.5-17.5); LYMPHOCYTES 19.9 % (15-50); MCH 34.4 pg (26.0-34.0); MCHC 32.3 g/dL (31.0-37.0); MCV 106.7 fL (80.0-100.0); MEAN PLATELET VOLUME 11.4 fL (7.4-10.4); MONOCYTES 25.9 % (2-11); NEUTROPHILS 49.9 % (40-80); PLATELET COUNT 177 10x3/uL (130-400); RDW 16.2 % (11.5-14.5); WBC 10.6 10x3/uL (4.8-10.8)
[2017-04-20 06:41] LABS: CALC OSMOLALITY 284 mosm/kg (275-300); CARBON DIOXIDE 26.3 mmol/L (21.0-32.0); CHLORIDE - SERUM 105 mmol/L (98-107); CREATININE - SERUM 0.8 mg/dL (0.6-1.3); GLUCOSE 117 mg/dL (74-106); SODIUM 141 mmol/L (136-145); UREA NITROGEN 20 mg/dL (7-18); eGFR NON AFRICAN AMERICAN > 90 mL/min (90-120)
[2017-04-20 07:45] VITALS: BP 132/55
[2017-04-20 20:00] VITALS: BP 119/57
[2017-04-21 08:49] VITALS: BP 104/53
[2017-04-22 01:01] VITALS: BP 113/51
[2017-04-22 06:30] LABS: BASOPHILS 0.1 % (0-2); EOSINOPHILS 0 % (0-7); HEMATOCRIT 27.9 % (42.0-54.0); IMMATURE GRANULOCYTES 6.2 % (0-5); LYMPHOCYTES 8.9 % (15-50); MCHC 32.3 g/dL (31.0-37.0); MCV 108.6 fL (80.0-100.0); MEAN PLATELET VOLUME 11.4 fL (7.4-10.4); MONOCYTES 33.7 % (2-11); NEUTROPHILS 51.1 % (40-80); PLATELET COUNT 204 10x3/uL (130-400); RBC 2.57 10x6/uL (4.20-6.10); RDW 16.5 % (11.5-14.5); WBC 9.4 10x3/uL (4.8-10.8)
[2017-04-22 06:40] LABS: CALC OSMOLALITY 291 mosm/kg (275-300); CALCIUM 7.8 mg/dL (8.5-10.1); CARBON DIOXIDE 28.6 mmol/L (21.0-32.0); CHLORIDE - SERUM 107 mmol/L (98-107); CREATININE - SERUM 0.9 mg/dL (0.6-1.3); GLUCOSE 109 mg/dL (74-106); POTASSIUM - SERUM 4.1 mmol/L (3.5-5.1); SODIUM 143 mmol/L (136-145); UREA NITROGEN 29 mg/dL (7-18); eGFR NON AFRICAN AMERICAN 85 mL/min (90-120)
[2017-04-22 09:09] VITALS: BP 118/54
[2017-04-22 11:44] VITALS: BP 128/58
[2017-04-22 19:35] VITALS: BP 131/69
[2017-04-23 08:00] VITALS: BP 116/65
[2017-04-23 19:50] VITALS: BP 124/43
[2017-04-24 06:14] LABS: BASOPHILS 0.1 % (0-2); EOSINOPHILS 0 % (0-7); HEMATOCRIT 27.8 % (42.0-54.0); HEMOGLOBIN 8.9 g/dL (13.5-17.5); IMMATURE GRANULOCYTES 4.8 % (0-5); LYMPHOCYTES 9.5 % (15-50); MCH 34.6 pg (26.0-34.0); MCV 108.2 fL (80.0-100.0); MONOCYTES 35.6 % (2-11); PLATELET COUNT 215 10x3/uL (130-400); RBC 2.57 10x6/uL (4.20-6.10); RDW 16.1 % (11.5-14.5); WBC 7.2 10x3/uL (4.8-10.8)
[2017-04-24 06:26] LABS: CALC OSMOLALITY 290 mosm/kg (275-300); CALCIUM 7.6 mg/dL (8.5-10.1); CARBON DIOXIDE 26.9 mmol/L (21.0-32.0); CHLORIDE - SERUM 107 mmol/L (98-107); GLUCOSE 107 mg/dL (74-106); SODIUM 143 mmol/L (136-145); UREA NITROGEN 30 mg/dL (7-18); eGFR NON AFRICAN AMERICAN 76 mL/min (90-120)
[2017-04-24 08:09] VITALS: BP 129/55
[2017-04-24 20:43] VITALS: BP 104/50
[2017-04-25 09:00] VITALS: BP 124/84
[2017-04-25 19:21] VITALS: BP 108/47
[2017-04-26 09:47] VITALS: BP 138/52
[2017-04-27 07:09] LABS: BASOPHILS 0.1 % (0-2); EOSINOPHILS 0.2 % (0-7); HEMATOCRIT 28.4 % (42.0-54.0); IMMATURE GRANULOCYTES 4.2 % (0-5); LYMPHOCYTES 7.6 % (15-50); MCH 34.4 pg (26.0-34.0); MCHC 31.7 g/dL (31.0-37.0); MCV 108.4 fL (80.0-100.0); MEAN PLATELET VOLUME 10.9 fL (7.4-10.4); MONOCYTES 36.7 % (2-11); NEUTROPHILS 51.2 % (40-80); PLATELET COUNT 240 10x3/uL (130-400); RBC 2.62 10x6/uL (4.20-6.10); RDW 16.1 % (11.5-14.5); WBC 8.8 10x3/uL (4.8-10.8)
[2017-04-27 07:21] LABS: CALC OSMOLALITY 282 mosm/kg (275-300); CALCIUM 8.1 mg/dL (8.5-10.1); CHLORIDE - SERUM 102 mmol/L (98-107); GLUCOSE 114 mg/dL (74-106); POTASSIUM - SERUM 4.4 mmol/L (3.5-5.1); SODIUM 139 mmol/L (136-145); UREA NITROGEN 23 mg/dL (7-18); eGFR NON AFRICAN AMERICAN 76 mL/min (90-120)
[2017-04-27 08:00] VITALS: BP 135/60
[2017-04-27 10:59] VITALS: BP 118/65
[2017-04-27 19:04] VITALS: BP 87/31
[2017-04-27 20:00] VITALS: BP 87/31
[2017-04-28 08:17] VITALS: BP 127/54
[2017-04-28 11:44] VITALS: BP 121/55
[2017-04-28 23:12] VITALS: BP 121/52
[2017-04-29 07:31] LABS: BASOPHILS 0 % (0-2); EOSINOPHILS 0 % (0-7); HEMATOCRIT 25.9 % (42.0-54.0); IMMATURE GRANULOCYTES 1.8 % (0-5); LYMPHOCYTES 7.7 % (15-50); MCH 33.5 pg (26.0-34.0); MCHC 30.9 g/dL (31.0-37.0); MCV 108.4 fL (80.0-100.0); MEAN PLATELET VOLUME 10.5 fL (7.4-10.4); MONOCYTES 39.7 % (2-11); NEUTROPHILS 50.8 % (40-80); PLATELET COUNT 231 10x3/uL (130-400); RBC 2.39 10x6/uL (4.20-6.10); RDW 16.2 % (11.5-14.5); WBC 7.3 10x3/uL (4.8-10.8)
[2017-04-29 07:43] LABS: CALC OSMOLALITY 285 mosm/kg (275-300); CALCIUM 8.4 mg/dL (8.5-10.1); CARBON DIOXIDE 29.8 mmol/L (21.0-32.0); CHLORIDE - SERUM 103 mmol/L (98-107); GLUCOSE 125 mg/dL (74-106); POTASSIUM - SERUM 4.3 mmol/L (3.5-5.1); SODIUM 139 mmol/L (136-145); UREA NITROGEN 31 mg/dL (7-18); eGFR NON AFRICAN AMERICAN 76 mL/min (90-120)
[2017-04-29 08:00] VITALS: BP 124/54
[2017-04-29 10:53] LABS: APPEARANCE SLT CLOUDY (CLEAR); BILIRUBIN NEGATIVE (NEGATIVE); COLOR DK YELLOW (YELLOW); GLUCOSE NEGATIVE (NEGATIVE); KETONE NEGATIVE (NEGATIVE); NITRITE NEGATIVE (NEGATIVE); PROTEIN 1+ mg/dL (NEGATIVE); SPECIFIC GRAVITY 1.015 (1.005-1.020)
[2017-04-29 10:54] LABS: BACTERIA MANY /hpf (NONE SEEN); EPITHELIAL CELLS 0-5 /hpf (0-5); MUCUS <1+ /lpf (NONE SEEN); WHITE CELLS - URINE >50 /hpf (0-5)
[2017-04-29 12:34] VITALS: BP 118/52
[2017-04-29 20:45] VITALS: BP 108/52
[2017-04-30 06:59] LABS: BASOPHILS 0 % (0-2); EOSINOPHILS 0.1 % (0-7); HEMATOCRIT 27.1 % (42.0-54.0); HEMOGLOBIN 8.5 g/dL (13.5-17.5); IMMATURE GRANULOCYTES 2.6 % (0-5); LYMPHOCYTES 17.9 % (15-50); MCH 34.1 pg (26.0-34.0); MCHC 31.4 g/dL (31.0-37.0); MCV 108.8 fL (80.0-100.0); MEAN PLATELET VOLUME 10.6 fL (7.4-10.4); MONOCYTES 27.8 % (2-11); NEUTROPHILS 51.6 % (40-80); PLATELET COUNT 234 10x3/uL (130-400); RBC 2.49 10x6/uL (4.20-6.10); RDW 16.3 % (11.5-14.5)
[2017-04-30 07:08] LABS: ANION GAP 13.7 mmol/L (8-16); CALCIUM 7.9 mg/dL (8.5-10.1); CARBON DIOXIDE 28.6 mmol/L (21.0-32.0); CREATININE - SERUM 1.1 mg/dL (0.6-1.3); POTASSIUM - SERUM 4.3 mmol/L (3.5-5.1)
[2017-04-30 08:11] VITALS: BP 118/59
[2017-04-30 20:40] VITALS: BP 107/54
[2017-05-01 08:55] VITALS: BP 116/58
== END 2017-05-01 11:30 | DRG 92 ==
LOC: D.REHAB 14:56
PROVIDERS: Emergency Medicine
DX: G72.81 Critical illness myopathy (principal); E46 Unspecified protein-calorie malnutrition; N39.0 Urinary tract infection, site not specified; N17.9 Acute kidney failure, unspecified; E87.0 Hyperosmolality and hypernatremia; I48.91 Unspecified atrial fibrillation; J44.9 Chronic obstructive pulmonary disease, unspecified; R13.10 Dysphagia, unspecified; E87.6 Hypokalemia; I95.9 Hypotension, unspecified; R53.83 Other fatigue; J02.9 Acute pharyngitis, unspecified; D64.9 Anemia, unspecified; R00.0 Tachycardia, unspecified; R31.9 Hematuria, unspecified; F32.9 Major depressive disorder, single episode, unspecified; K21.9 Gastro-esophageal reflux disease without esophagitis; I10 Essential (primary) hypertension; R41.0 Disorientation, unspecified; W19.XXXA Unspecified fall, initial encounter; Y92.239 Unspecified place in hospital as the place of occurrence of the external cause